=== PATIENT | male | born 1965 | race Caucasian/White ===

== ENCOUNTER 2017-08-31 10:21 | Emergency (ER) | payer OTHER ==
--- NOTE | 2017-08-31 10:47 | ED Physician Chart ---
ED Chief Complaint/HPI - Patient Information Date Seen:: 08/31/17 Time Seen:: 10:30 Chief Complaint:: cough History of Present Illness:: Patient's had a headache and a cough occasionally productive of green sputum for last 1 month. No vomiting. Patient has had some diarrhea. Allergies:: Allergies Allergy/AdvReac Type Severity Reaction Status Date / Time Penicillins Allergy Verified 08/31/17 10:29 Vitals:: Vital Signs - 8 hr 08/31/17 10:30 Temp 97.6 F HR 111 RR 22 BP 151/84 O2 Sat % 99 Historian:: Patient Review:: Nurse's Note Reviewed ED Review of Systems - Review of Systems General/Constitutional: No fever, No chills Skin: No skin lesions Head: No headache Eyes: No loss of vision ENT: No earache Neck: No neck pain, No swelling, No thyromegaly, No stiffness Cardio Vascular: No chest pain, No palpitations Pulmonary: No SOB, Cough GI: No nausea, No vomiting, Diarrhea G/U: No dysuria, No frequency, No hematuria Musculoskeletal: No bone or joint pain Endocrine: No polyuria, No polydipsia Psychiatric: No prior psych history, No depression, No anxiety Hematopoietic: No bruising Allergic/Immuno: No urticaria Neurological: No syncope, No headache, No seizure ED Past Medical History - Past Medical History Past Medical History: DM Family History: Diabetes Melitus Social History: Smoker, No Alcohol, Other (smokes one half pack of cigarettes a day) Surgical History: None Psychiatricy History: None Medication: Reviewed Family Medical History - Family Member Mother History Unknown: Yes Ethnicity: ED Physical Exam - Physical Examination General/Constitutional: Well-developed, well-nourished, Alert, No distress Head: Atraumatic Eyes: Lids, conjuctiva normal, PERRL Skin: Nl inspection, No rash, No skin lesions, No ecchymosis ENMT: External ears, nose nl, TM canals nl, Nasal exam nl, Oropharynx nl, Tonsils nl Other ENMT comments:: Several teeth carious to the gum line Neck: No nuchal rigidity Respiratory: Nl effort/Exclusion, Clear to Auscultation, No Wheeze/Rhonchi/Rales Cardio Vascular: RRR, No murmur, gallop, rubs, NL S1 S2 GI: No tenderness/rebounding/guarding, No organomegaly, No hernia, Normal BS's : No CVA tenderness Extremities: Normal digits & nails Neuro/Psych: No focal deficits Misc: No paraspinal tenderness ED Labs/Radiology/EKG Results - Lab Results Results: Laboratory Tests 08/31/17 10:35 POC Glucose 285 H ED Septic Shock - . Is Septic Shock (SBP<90, OR Lactate>4 mmol\L) present?: No - <6hrs of presentation: Vital Signs: Vital Signs - 8 hr 08/31/17 10:30 Temp 97.6 F HR 111 RR 22 BP 151/84 O2 Sat % 99 ED Reassessment (Disposition) - Reassessment Reassessment Condition:: Unchanged - Diagnosis Diagnosis:: Viral bronchitis - Aftercare/Follow up Instructions Aftercare/Follow-Up Instructions:: Refer to Discharge Instructions Medication Prescribed:: Robitussin-DM 4 ounces to take 2 teaspoons 4 times a day as necessary - Patient Disposition Discharge/Transfer:: Home Condition at Disposition:: Stable, Unchanged ED Discharge Plan - Patient Disposition Additional Instructions: TOLERATED.
--- NOTE | 2017-08-31 12:45 | Diagnostic Imaging Report ---
CHEST X-RAY: AP view INDICATION: Cough for one month COMPARISON: None FINDINGS: Patient is mildly rotated. There is no focal consolidation or pleural effusions The heart is normal in size. The osseous structures demonstrate no acute abnormalities. IMPRESSION: No focal consolidation identified. Consider follow-up if symptoms persist.
== END 2017-08-31 11:13 | disposition home or self-care (01) ==
LOC: ER 10:21
DX: J20.8 Acute bronchitis due to other specified organisms (principal); E11.9 Type 2 diabetes mellitus without complications; F17.200 Nicotine dependence, unspecified, uncomplicated
CPT/HCPCS: 71045-TC; 82948-90; Z7502

== ENCOUNTER 2019-01-01 14:13 | Emergency (ER) | payer MEDICARE, MEDICAID ==
--- NOTE | 2019-01-01 17:07 | ED Physician Chart ---
ED Chief Complaint/HPI - Patient Information Date Seen:: 01/01/19 Time Seen:: 14:20 Chief Complaint:: Headaches History of Present Illness:: onset x 3 days of intermittent, dull, diffuse Headaches; pt denies trauma, LOC, ALOC, AMS, decreased activity, visual or gait changes, weakness, dizziness, paresthesias, vertigo, E/As, S/T, neck pain, cough, C/P, SOB, Abd. 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 Allergies:: Allergies Allergy/AdvReac Type Severity Reaction Status Date / Time Penicillins Allergy Verified 01/01/19 14:18 Vitals:: Vital Signs - 8 hr 01/01/19 01/01/19 14:21 15:46 HR 107 100 RR 18 16 BP 148/83 142/80 O2 Sat % 99 98 Historian:: Patient Review:: Nurse's Note Reviewed, Old Chart Reviewed ED Review of Systems - Review of Systems General/Constitutional: No fever, No chills, No weight loss, No weakness, No diaphoresis, No edema, No loss of appetite Skin: No skin lesions, No rash, No bruising Head: No headache, No light-headedness Eyes: No loss of vision, No pain, No diplopia ENT: No earache, No nasal drainage, No sore throat, No tinnitus Neck: No neck pain, No swelling, No thyromegaly, No stiffness, No mass noted Cardio Vascular: No chest pain, No palpitations, No PND, No orthopnea, No edema Pulmonary: No SOB, No cough, No sputum, No wheezing GI: No nausea, No vomiting, No diarrhea, No pain, No melena, No hematochezia, No constipation, No hematemesis G/U: No dysuria, No frequency, No hematuria, No nacturia Musculoskeletal: No bone or joint pain, No back pain, No muscle pain Endocrine: No polyuria, No polydipsia Psychiatric: No prior psych history, No depression, No anxiety, No suicidal ideation, No homicidal ideation, No auditory hallucination, No visual hallucination Hematopoietic: No bruising, No lymphadenopathy Allergic/Immuno: No urticaria, No angioedema Neurological: No syncope, No focal symptoms, No weakness, No paresthesia, No headache, No seizure, No dizziness, No confusion, No vertigo ED Past Medical History - Past Medical History Obtainable: Yes Past Medical History: HTN, DM Family History: Diabetes Melitus, HTN Social History: Non Smoker, No Alcohol, No Drug Use, Single Surgical History: None Psychiatricy History: None Medication: Reviewed Family Medical History - Family Member Mother History Unknown: Yes Ethnicity: ED Physical Exam - Physical Examination General/Constitutional: Awake, Well-developed, well-nourished, Alert, No distress, GCS 15, Non-toxic appearing, Ambulatory Head: Atraumatic Other Head comments:: PERRLA; Fundi: benign; EOMs: WNL Eyes: Lids, conjuctiva normal, PERRL, EOMI Skin: Nl inspection, No rash, No skin lesions, No ecchymosis, Well hydrated, No lymphadenopathy ENMT: External ears, nose nl, TM canals nl, Nasal exam nl, Lips, teeth, gums nl , Oropharynx nl, Tonsils nl Other ENMT comments:: TMJs: WNL Neck: Nontender, Full ROM w/o pain, No JVD, No nuchal rigidity, No bruit, No mass, No stridor Other Neck comments:: supple; no meningeal signs; no cervical tenderness; no bruits Respiratory: Nl effort/Exclusion, Clear to Auscultation, No Wheeze/Rhonchi/Rales Cardio Vascular: RRR, No murmur, gallop, rubs, NL S1 S2, Carotid/Femoral/Distal pulses equal bilaterally GI: No tenderness/rebounding/guarding, No organomegaly, No hernia, Normal BS's, Nondistended, No mass/bruits, No McBurney tenderness, Rectum exam nl Other GI comments:: no pulsatile masses : No CVA tenderness Extremities: No tenderness or effusion, Full ROM, normal strength in all extremities, No edema, Normal digits & nails Neuro/Psych: Alert/oriented, DTR's symmetric, Normal sensory exam, Normal motor strength, Judgement/insight normal, Mood normal, Normal gait, No focal deficits Other Neuro/Psych comments:: no focal signs Misc: Normal back, No paraspinal tenderness ED Labs/Radiology/EKG Results - Lab Results Comments:: Accu-check: Blood Glucose: 145; Final BP: 136/82 - Radiology Results Comments:: DJD Changes; NAD ED Septic Shock - . Is Septic Shock (SBP<90, OR Lactate>4 mmol\L) present?: No - <6hrs of presentation: Vital Signs: Vital Signs - 8 hr 01/01/19 01/01/19 14:21 15:46 HR 107 100 RR 18 16 BP 148/83 142/80 O2 Sat % 99 98 ED Reassessment (Disposition) - Reassessment Reassessment:: pt tolerated po fluids well in ER; pt is asymptomatic upon discharge Reassessment Condition:: Improved - Diagnosis Diagnosis:: Headaches; DM; HTN; Vascular Cephalgia; Osteoarthritis; Migraine/tension Headaches - Aftercare/Follow up Instructions Aftercare/Follow-Up Instructions:: Counseled pt regarding lab results/diagnosis & need follow up, Refer to Discharge Instructions, Counseled pt & family regarding lab results/diagnosis & need follow up - Patient Disposition Discharge/Transfer:: Home Condition at Disposition:: Stable, Improved (X-Rays Instructions; RTER prn if existing s/s reoccur and/or get worse and/or any other new s/s occur; ACIs given for all above Dx; Have Blood Pressure re-checked in one day by PMD; Refer to Neurologist/Renewal Specialist LILIBETH; F/U with PMD in one day or prn; RTER prn if concerned)
--- NOTE | 2019-01-02 08:52 | Diagnostic Imaging Report ---
Head CT without intravenous contrast Indication: Headache Comparison: None Technique: Axial images were obtained from the vertex to the skull base without IV contrast. Coronal reconstructions were made. Total DLP: 724, CTDI38 FINDINGS: Images of the brain obtained without contrast demonstrate no evidence of an acute hemorrhage. The farley-white matter differentiation is preserved. The ventricles and basal cisterns are patent. No mass effect or midline shift. No evidence of a skull fracture or focal soft tissue swelling. There appear to be multiple scalp nodules. The paranasal sinuses are clear. IMPRESSION: No acute intracranial abnormality. There appear to be multiple scalp nodules. Please correlate with clinical findings. Is there a history of etiology such as neurofibromatosis?
--- NOTE | 2019-01-02 08:56 | Diagnostic Imaging Report ---
CT cervical spine without IV contrast HISTORY: Pain COMPARISON: None Technique: Axial images were obtained from the skull base to the upper thoracic spine without IV contrast. Multiplanar reconstructions were made. Total DLP: 468, CTDI19 FINDINGS: Images of the cervical spine obtained without contrast demonstrate no evidence of an acute fracture or subluxation. There is reversal of the cervical lordosis most pronounced at the C5/C6 level. Multilevel moderate to advanced degenerative changes are seen with moderate disc space loss of height at C5/C6. Multilevel marginal osteophytic spurs are noted. There is also large subchondral vacuum phenomena seen along the posterior aspect of the C5 vertebral body measuring up to 7 mm. There are also marked degenerative changes of the atlantodental articulation with subchondral cyst seen within the anterior odontoid process measuring 6 mm. Sclerotic changes of the dens are noted likely degenerative in etiology. No prevertebral soft tissue swelling. There are moderate to severe facet degenerative changes seen at C2/C3 on the left no prevertebral soft tissue swelling. The lung apices are clear. Atherosclerosis is noted. IMPRESSION: No evidence of acute fracture or subluxation Moderate to advanced degenerative changes as detailed above Reversal of the cervical lordosis most pronounced at C5/C6. Atherosclerotic vascular disease.
== END 2019-01-01 15:58 | disposition home or self-care (01) ==
LOC: ER 14:13
DX: G44.1 Vascular headache, not elsewhere classified (principal); I10 Essential (primary) hypertension; E11.9 Type 2 diabetes mellitus without complications; M19.90 Unspecified osteoarthritis, unspecified site; Z88.0 Allergy status to penicillin; Z59.0 Homelessness
CPT/HCPCS: 70450-TC; 72125-TC